=== PATIENT | male | born 1990 | race African-American/Black ===

== ENCOUNTER 2017-09-09 15:23 | Emergency (ER) | payer OTHER ==
[~2017-09-09] VITALS: Ht 185.4 cm; Wt 92.1 kg
--- NOTE | 2017-09-09 15:54 | NUR ---
Patient discharged to home in stable conditon. Written and verbal after care instructions given. Patient verbalizes understanding of instructions.
== END 2017-09-09 15:55 | disposition home or self-care (01) ==
LOC: ER 15:27
DX: R21 Rash and other nonspecific skin eruption (principal)
CPT/HCPCS: 99283; A4663